=== PATIENT | female | born 1995 | race Caucasian/White ===

== ENCOUNTER 2017-07-23 08:45 | Day surgery (SDC) | payer OTHER ==
[~2017-07-23 08:45] MED LIST: ANCEF 1 GM IV PREMIX* 1 GM/50 ML BAG IV ONE; NS 1000 ML 1,000 ML ONE
[2017-07-23 09:48] LABS: BASOPHILS # (AUTO) 0.1 X10^3/uL (0.0-0.1); BASOPHILS % (AUTO) 1.6 % (0.2-1.0); EOSINOPHILS # (AUTO) 0.1 x10^3/uL (0.0-0.2); EOSINOPHILS % (AUTO) 1.7 % (0.9-2.9); HEMATOCRIT 40.6 % (36.0-47.0); HEMOGLOBIN 13.9 g/dL (12.0-16.0); LYMPHOCYTES # (AUTO) 2.3 X10^3/uL (1.3-2.9); LYMPHOCYTES % (AUTO) 31.1 % (21.0-51.0); MEAN CORPUSCULAR HEMOGLOBIN 29.1 pg (27.0-34.0); MEAN CORPUSCULAR HGB CONC 34.4 g/dL (33.0-35.0); MEAN CORPUSCULAR VOLUME 84.7 fL (80.0-100.0); MONOCYTES # (AUTO) 0.3 x10^3/uL (0.3-0.8); MONOCYTES % (AUTO) 4.7 % (0.0-13.0); NEUTROPHILS # (AUTO) 4.5 x10^3/uL (2.2-4.8); NEUTROPHILS % (AUTO) 60.9 % (42.0-75.0); PLATELET COUNT 154 X10^3/uL (150.0-450.0); RED BLOOD COUNT 4.79 X10^6/uL (3.5-5.4); RED CELL DISTRIBUTION WIDTH 13.7 % (11.6-16.5); WHITE BLOOD COUNT 7.4 X10^3/uL (3.6-10.0)
[2017-07-23 09:58] LABS: SERUM PREGNANCY TEST, QUAL NEGATIVE <10 mIU/mL
[2017-07-23 10:00] LABS: ALANINE AMINOTRANSFERASE 22 Units/L (12-78); ALBUMIN 4.2 g/dL (3.4-5.0); ALKALINE PHOSPHATASE 77 Units/L (46-116); ASPARTATE AMINO TRANSFERASE 17 Units/L (15-37); BLOOD UREA NITROGEN 9 mg/dL (7-18); CALCIUM 8.5 mg/dL (8.5-10.1); CARBON DIOXIDE 26.3 mmol/L (21-32); CHLORIDE 105 mmol/L (98-107); CREATININE 0.77 mg/dL (0.55-1.02); SODIUM 141 mmol/L (136-145); TOTAL PROTEIN 8.1 g/dL (6.4-8.2); eGFR BLACK RACES > 60 (>60); eGFR NON BLACK RACES > 60 (>60)
[2017-07-23] MEDS ORDERED: XYLOCAINE 1 % (PLAIN) ONE (11:09)
[2017-07-23] MEDS ORDERED: MARCAINE 0.25% INJ ONE (11:09)
[2017-07-23] MEDS ORDERED: FENTANYL INJ 250 mcg ONE (11:16)
[2017-07-23] MEDS ORDERED: ADRENALINE CHL INJ ONE (11:17)
[2017-07-23] MEDS ORDERED: NS IRRIGATION 1000 ML 1,000 ML IR ONE (12:27)
[2017-07-23] MEDS ORDERED: REGLAN INJ 10 MG VIAL IVP PRN (13:16)
[2017-07-23] MEDS ORDERED: MORPHINE SULFATE INJ 2 MG INJ IVP PRN (13:16)
[2017-07-23] MEDS ORDERED: DILAUDID INJ ONE (13:16)
[2017-07-23] MEDS ORDERED: BENADRYL INJ 50 MG VIAL IVP PRN (13:16)
[2017-07-23] MEDS ORDERED: ZOFRAN INJ 4 MG VIAL IVP PRN (13:16)
[2017-07-23] MEDS ORDERED: PERCOCET TAB 5/325 MG PO PRN (13:16)
[2017-07-23] MEDS ORDERED: PHENERGAN INJ 25 MG IVP PRN (13:16)
[2017-07-23] MEDS: DILAUDID INJ IVP PRN ×2 (13:17→13:26)
--- NOTE | 2017-07-23 13:26 | OR.GENERIC ---
Post-Op Note Generic - Post-Op Note Operative Report: Operative Report Date of Operation: July 23, 2017 Pre-Operative Diagnosis: Biliary dyskinesia. Post-Operative Diagnosis: 1. Mild chronic cholecystitis. 2. Biliary dyskinesia. 3. Umbilical hernia (less than 1 cm). Procedure: Laparoscopic cholecystectomy. Surgeon: Woody Ferrera MD. Yeast Distiller: Capri Huynh CRNA. Specimen: Gallbladder. Estimated blood loss: Minimal. Complications: None. Summary: The patient is a 22 year old female who presented with biliary dyskinesia. The patient was offered cholecystectomy. The risk and benefits of the procedure including difficulty with anesthesia, bleeding, infection, conversion to open procedure, bile leak, hernia formation, DVT, as well as PE were discussed with the patient. The patient understood these risks and requested the procedure. On July 23, 2017, the patient was brought to the operative theatre. A time out was performed verifying the patient and procedure. The patient received Ancef for pre-operative antibiosis. After satisfactory induction of general endotracheal anesthesia, the abdomen was prepped with Chloraprep and draped in the usual sterile fashion. The skin and subcutaneous tissue inferior to the umbilicus was anesthetized using local anesthetic. The skin was incised sharply. A small fascial defect was appreciated. The fascial defect was enlarged. A hernia sac was opened sharply and opened using blunt dissection. A 12 mm trocar was placed though the incision and into the peritoneal cavity using the Vonnie technique. Carbon dioxide was infiltrated through this trocar to obtain a pneumoperitoneum of 15 mm Hg. A camera was placed through this trocar and swept in all directions. No injury was seen from entering the peritoneal cavity. A site was selected in the subxiphoid location for our 2nd trocar. The skin and fascia was anesthetized using local anesthetic. The skin was incised sharply. A 5 mm trocar was placed into the peritoneal cavity under direct visualization. In a similar manner, two additional 5 mm trocars were placed. The first was placed in the mid-clavicular line approximately 2 fingerbreadths inferior to the left costal margin and a second in the anterior axillary line approximately 2 fingerbreadths inferior to the left costal margin. The patient was placed in reverse Trendelenburg and rotated to the patients left. The gallbladder was grasped at the fundus and elevated cephalad and slightly lateral. Omental attachments were taken down using blunt dissection and electrocautery. The peritoneum on the medial and lateral aspects of the infundibulum of the gallbladder was scored using hook electrocautery. Using blunt dissection, the cystic artery and duct were isolated. The critical view of safety was obtained. Both of these structures were divided between endoclips. A posterior branch of the cystic artery was dissected free and divided between endoclips. The gallbladder was dissected free using hook electrocautery. A structure was seen entering the gallbladder near the fundus that appeared to be an accessory duct. This was also clipped and divided sharply. The gallbladder was placed in an endobag and removed through the umbilical trocar site without difficulty. The trocar and camera were placed back inside the abdomen. Our clips were noted in good position. Bleeding of the gallbladder fossa was controlled using electrocautery. At this point, the 5 mm trocars were removed under direct visualization. No bleeding was seen. The umbilical trocar was then removed and pneumoperitoneum released. The fascia at the umbilicus was closed using a 0-Vicryl placed in a figure-of- eight configuration x 2. The skin edges at all incisions were re-approximated using inverted, interrupted 4-0 Monocryl sutures. Mastisol and Steri-strips were placed. Sterile dressings were placed. The patient was awakened and taken to the recovery room in stable condition. There were no complications. All counts were correct.
[2017-07-23] MEDS ORDERED: ZOFRAN INJ 4 MG VIAL ONE ×2 (14:02→15:35)
[2017-07-23] MEDS ORDERED: PHENERGAN INJ 25 MG ONE (14:43)
[2017-07-23 15:02] VITALS: BP 97/53
[2017-07-23] MEDS ORDERED: DIPRIVAN VIAL ONE (15:35)
[2017-07-23] MEDS ORDERED: TORADOL 30 MG VIAL ONE (15:35)
[2017-07-23] MEDS ORDERED: ROBINUL ONE (15:35)
[2017-07-23] MEDS ORDERED: XYLOCAINE 2 % (PLAIN) ONE (15:35)
[2017-07-23] MEDS ORDERED: QUELICIN (OR ANECTINE) ONE (15:35)
[2017-07-23] MEDS ORDERED: NEOSTIGMINE INJ ONE (15:35)
[2017-07-23] MEDS ORDERED: NORCURON INJ 10 MG VIAL ONE (15:35)
[2017-07-23] MEDS ORDERED: VERSED ONE (15:35)
[2017-07-23] MEDS ORDERED: SUPRANE IN ONE (15:35)
== END 2017-07-23 15:01 | disposition home or self-care (01) | DRG 419 ==
LOC: SURG1 08:45
PROVIDERS: ATTEND Student in an Organized Health Care Education/Training Program
PROC: 0FT44ZZ Resection of Gallbladder, Percutaneous Endoscopic Approach (ICD-10-PCS; principal; 2017-07-23 13:00)
DX: K82.8 Other specified diseases of gallbladder (principal); K81.1 Chronic cholecystitis; K42.9 Umbilical hernia without obstruction or gangrene
CPT/HCPCS: 36415; 80053; 84703; 85025; A4216; A4222; S0020; J0170; J0330; J0690; J1170; J1885; J2001; J2250; J2405; J2550; J2710; J3010; J3490